=== PATIENT | female | born 1975 | race American Indian/Alaskan Native ===

== ENCOUNTER 2018-02-20 09:45 | Inpatient (IN) | payer OTHER ==
[~2018-02-20] VITALS: Ht 160 cm; Wt 68.0 kg
== END 2018-02-28 22:48 | disposition home or self-care (01) | DRG 743 ==
LOC: ADM 09:45 → SURG 02-22 03:45 → OB/GYN 02-22 08:55 → O/R 02-22 08:55 → SURG 02-22 09:45 → EDSTATUS 02-22 09:45 → CIR.AMB 02-22 09:45 → OB/GYN 02-22 18:30
PROVIDERS: Obstetrics & Gynecology Obstetrics
PROC: 0UT94ZZ Resection of Uterus, Percutaneous Endoscopic Approach (ICD-10-PCS; principal; 2018-02-22 03:45)
DX: D25.1 Intramural leiomyoma of uterus (principal); N80.0 Endometriosis of uterus; N83.8 Other noninflammatory disorders of ovary, fallopian tube and broad ligament